=== PATIENT | male | born 1975 | race Caucasian/White ===

== ENCOUNTER 2023-12-13 02:09 | Emergency (ER) | payer MEDICARE, SELFPAY ==
[2023-12-13 02:11] VITALS: BP 173/94
--- NOTE | 2023-12-13 03:06 | ED.GENMED ---
History of Present Illness
General
Chief Complaint: Facial Problem
Source: patient and previous hospital records
Exam Limitations: none
Time Seen by Provider: 12/13/23 02:55
Nursing documentation reviewed up to this point in time: agreed with
History of Present Illness
History of Present Illness:
This is a 48-year-old gentleman who has history of hypertension, chronic back pain, chronically narcotic dependent. He complains of 2-day history of left upper anterior dental pain with onset of swelling left medial cheek region that has now
extended to inferior orbital region. He has not had a fever nor chills.
He does admit to chronic poor dentition and states his previous dentist has retired. He has not as yet established with a new dentist.
He did call his PCP yesterday, requesting antibiotic for dental infection and is still awaiting a callback.
He is chronically maintained on MS Contin 15 mg twice daily as well as Oxy IR 5 mg 4 times daily. Follows monthly with pain management.
He took Tylenol, ibuprofen and and Oxy IR at 5 PM without significant relief. Pain is worse tonight with attempting to lie down and sleep.
He denies headache, denies eye pain or vision difficulty, denies sore throat nor difficulty swallowing. He admits to chronically avoiding chewing on the left side of his mouth.
Past History
Past History
ED Past Medical History: HTN, Other (Depression, Herniated disc C4-C5, Bursisits R hip, Anxiety, Ulcers) and Other (chronic pain, cellulitis right foot with toe pustule)
ED Past Surgical History: Orthopedic and Tonsilectomy
Social History
Tobacco: Smoker
Alcohol: None
Drug: None
Personal: Single (Engaged)
Living: with roommate
Employment: Disabled
Family History
Family History: Other (Noncontributory)
Phy Exam
Physical Exam
Physical Exam:
GENERAL: 48-year-old gentleman appears somewhat older than stated age, awake and alert, appears in no acute distress. Moderate odor of tobacco about the patient.
EYE: pupils equal and reactive. anicteric
NECK: Supple, nontender, no meningismus, no significant adenopathy.
ENT: posterior pharynx is clear, oral mucosa is moist. There is globally poor dentition with extensive dental decay with exquisite tenderness left upper lateral incisor that has a chronic dental avulsion to the gingival line. There is moderate
local gingival erythema and moderate local tenderness about this upper lateral incisor but no evidence of overt abscess. There is mild soft tissue swelling left medial cheek just lateral to the nose without local tenderness. There is no
periorbital edema nor erythema nor facial erythema. TM clear b/l, nares patent without rhinorrhea nor mucopus.
CARDIAC: Regular rate and rhythm. no murmur.
LUNGS: Clear breath sounds bilaterally, no acute respiratory distress, no wheezes/rales/rhonchi
ABDOMEN: Soft, nondistended, without focal tenderness
NEUROLOGICAL: Alert and oriented x3, no focal neuro deficits. Gait is baptiste and steady.
SKIN: Warm and dry, normal color, skin intact. No rash.
MUSCULOSKELETAL: No C/C/E. peripheral pulses are full and equal b/l. No palpable tenderness.
PSYCH: Normal and appropriate interaction.
Course
Orders/Labs/Results
Orders:
Orders
12/13/23 03:06
Clindamycin HCl [Cleocin] 300 mg PO NOW STA
Ketorolac [Toradol] 60 mg IM NOW STA
Vital Signs
Initial and Last Documented VS:
Initial Vital Signs
Temp Pulse Resp BP Pulse Ox
99.1 F 81 16 173/94 99
12/13/23 02:11 12/13/23 02:11 12/13/23 02:11 12/13/23 02:11 12/13/23 02:11
Last Documented Vital Signs
Temp Pulse Resp BP Pulse Ox
99.1 F 81 16 173/94 99
12/13/23 02:11 12/13/23 02:11 12/13/23 02:11 12/13/23 02:11 12/13/23 02:11
MDM/Problems Addressed
Differential Diagnosis Includes:
Patient presents with 2-day history of left upper lateral dental pain with local soft tissue swelling.
Exam remarkable for significant global dental decay and focal tenderness and gingival erythema at this upper left lateral incisor consistent with dental infection/abscess. There is no evidence of facial cellulitis nor sinusitis.
Overall nontoxic in appearance.
He is a smoker but no history of immunocompromise, no history of diabetes.
Will initiate a course of clindamycin and add ibuprofen for as needed pain. Will give a dose of Toradol now for pain.
Recommend supportive measures, soft diet, elevating head of bed on several extra pillows, local ice.
Recommend follow-up with dentist versus oral surgeon and patient has been provided referral information for oral surgery on-call.
Return precautions discussed.
*Pulse Oximetry
Patient hypoxic: no
*Critical Care Note
Total Time (30-74mins, 75-104mins- exclusive of procedures): Not Applicable
ED Attending Note
-
Portions of this chart may have been created with voice recognition software.� Occasional wrong word or��sound alike� substitutions may have occurred due to the inherent limitations of voice recognition software.
Discharge Plan
Departure
Patient Disposition: Home (Routine Discharge)
Date of Disposition: 12/13/23
Time of Disposition: 03:07
Patient with high blood pressure during this ER visit?: No
Condition: Good
Discharge Problem:
Abscess, dental
Instructions: Dental abscess
Prescriptions:
New
clindamycin HCl 300 mg capsule
300 mg PO Q6H Qty: 28 0RF
ibuprofen 800 mg tablet
800 mg PO QIDPRN PRN (Reason: pain, fever) Qty: 30 0RF
No Action
oxycodone 5 MG tablet
5 mg PO TID
morphine 15 MG tablet extended release
15 mg PO Q12H
metoprolol succinate 50 MG tablet extended release 24 hr
75 mg PO DAILY
methocarbamol 750 mg Tablet
750 mg PO TID
lisinopril 5 mg Tablet
5 mg PO DAILY
pregabalin 75 mg Capsule
75 mg PO DAILY
Referrals:
Bushra Mcintosh, DMD [Active] - Call in 1-3 days for appt
Interventions
Interventions:
*Risk Screen - Suicide Last Done: 12/13/23 02:11
*Neglect/Abuse Screening Last Done: 12/13/23 02:11
*ED COVID-19 Vaccine History Last Done: 12/13/23 02:11
*Nursing Disposition Last Done: 12/13/23 03:35
ED- Neurological Assessment Last Done: 12/13/23 02:51
ED-Skin Assessment Last Done: 12/13/23 02:51
Discharge Date and Time
Discharge Date/Time: 12/13/23 03:35
Print Language: RUSSIAN
[2023-12-13] MEDS: CLEOCIN 300 MG PO (03:19)
[2023-12-13] MEDS: TORADOL 60 MG IM (03:22)
== END 2023-12-13 03:35 | disposition home or self-care (01) ==
LOC: EMR 02:09
PROVIDERS: EMERGENCY PHYSICIAN Emergency Medicine; FAMILY PHYSICIAN Family Medicine
DX: K04.7 Periapical abscess without sinus (principal); K02.9 Dental caries, unspecified; I10 Essential (primary) hypertension; F32.A Depression, unspecified; F41.9 Anxiety disorder, unspecified; M50.221 Other cervical disc displacement at C4-C5 level; M54.9 Dorsalgia, unspecified; K21.9 Gastro-esophageal reflux disease without esophagitis; G89.29 Other chronic pain; F11.20 Opioid dependence, uncomplicated; F17.200 Nicotine dependence, unspecified, uncomplicated; Z88.0 Allergy status to penicillin; Z91.030 Bee allergy status
CPT/HCPCS: 99284; 96372

== ENCOUNTER → 2025-04-08 12:56 | Outpatient (REF) | payer MEDICARE, SELFPAY | LOC: RCS 12:56 | PROVIDERS: ATTENDING PHYSICIAN Internal Medicine Cardiovascular Disease; FAMILY PHYSICIAN Family Medicine | DX: I49.3 Ventricular premature depolarization (principal); R06.09 Other forms of dyspnea | CPT/HCPCS: 93306 ==